=== PATIENT | female | born 1990 | race Caucasian/White ===

== ENCOUNTER 2017-04-06 12:41 | Emergency (ER) | payer OTHER, MEDICARE ==
[~2017-04-06] VITALS: Ht 165.1 cm; Wt 108.4 kg
[2017-04-06] MEDS ORDERED: ZOFRAN ODT4 MG PO (14:15)
[2017-04-06] MEDS ORDERED: DEBROX15 ML RIGHT EAR (14:19)
[2017-04-06 14:22] VITALS: BP 130/88
== END 2017-04-06 14:40 | disposition home or self-care (01) ==
LOC: EME 12:41
DX: F07.81 Postconcussional syndrome (principal); S00.03XA Contusion of scalp, initial encounter; W50.0XXA Accidental hit or strike by another person, initial encounter; Y99.0 Civilian activity done for income or pay; H61.21 Impacted cerumen, right ear; F41.9 Anxiety disorder, unspecified; F32.9 Major depressive disorder, single episode, unspecified
CPT/HCPCS: 99281; 99284